=== PATIENT | female | born 1945 | race Caucasian/White ===

== ENCOUNTER → 2017-01-13 | Outpatient (CLI) | payer OTHER ==
[~2017-01-13] MED LIST: ADULT LOW DOSE81 MG PO; ALBUTEROL INHAL17 GM; ASPIRIN EC325 M1 PO; ASPIRIN EC81 M1 PO; ASPIRIN325; ASPIRIN325 PO; CALCIUM-MAGNES1 EA10 PO; CALTRATE PLUS1 EACH PO; CARDIO OMEGA B1 EACH PO; CARDIZEM CD240 MG PO; CENTRUM SILVER1 EAC4 PO; CIPRO PO; CIPROFLOXACIN500 M1 PO; DILTIAZEM 24HR240 MG PO; DILTIAZEM 24HR300 M1; DILTIAZEM 24HR300 M1 PO; DILTIAZEM ER240 M1 PO; DILTIAZEM ER300 MG PO; DIOVAN HCT 80-1 EACH; DIOVAN160 MG PO; DIOVAN40 MG PO; FLAGYL500 MG PO; GARLIC OIL1 EAC1 PO; LEVOTHYROXIN0.125 M1 PO; LEVOTHYROXIN0.125 M2 PO; NEXIUM40 MG PO; PROPAFENONE 15150 MG PO; PROPAFENONE 22225 M1 PO; PROPAFENONE 22225 MG; SINGULAIR 10 MG10 M1 PO; VICODIN PO; XARELTO10 MG PO; ZOCOR 10 MG TAB10 MG PO; ZOCOR 20 MG TAB20 M1; ZOCOR 20 MG TAB20 M1 PO; ZOFRAN ODT4 MG PO
== END ==
LOC: RAD 02:06
DX: Z12.31 Encounter for screening mammogram for malignant neoplasm of breast (principal)

== ENCOUNTER 2018-05-07 02:50 | Inpatient (IN) | payer OTHER ==
[~2018-05-07] VITALS: Ht 160 cm; Wt 79.8 kg
[2018-05-07] VITALS (9 sets, daily range): BP systolic 136–181; BP diastolic 62–102
--- NOTE | ~2018-05-07 | EKG ---
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1945 Requested By: Joaquim Polo Order Number: [id number] MD: Robbie Pride Measurements Intervals [place] Rate: 107 P: [place]: QRS: -38 QRSD: 76 T: 60 QT: 334 QTc: 446 Interpretive Statements Atrial fibrillation Abnormal R-wave progression, late transition Inferior infarct, old Compared to ECG 03/27/2014 20:05:17 No significant change was found Electronically Signed On 05-07-2018 8:39:24 [employer] by Robbie Pride [email or web address] <ELECTRONICALLY SIGNED> By: Robbie Pride MD, [facility] 05/07/18 0839 [id number] 0256 Robbie Pride MD, [facility] /EPI
--- NOTE | ~2018-05-07 | HC ---
[facility] [place] [address] CONSULTATION Name: KANIKA TRAMMELL Room #: 214-P [facility] IN M.R.#: [id number] Admission: 05/07/18 Attend Phys: Rafael Oscar MD Discharge: 05/07/18 Date of : 41 Report #: [id number] THIS REPORT FOR: //name// CC: Abdias Oscar DATE OF SERVICE: 05/07/2018 INDICATION: Chest pain. HISTORY OF PRESENT ILLNESS: This is a 72-year-old female with a past medical history significant for permanent atrial fibrillation, mitral regurgitation, hypertension, edema, GERD, presenting with chest pains. About 3 hours after eating dinner, the patient developed a discomfort in the substernal/epigastric area. She also felt that it extended down to the abdomen with cramping. She denies any associated symptoms of dyspnea, diaphoresis or palpitations. She burped with a slight improvement in the symptoms. Later in the evening, the pain returned and she noticed an elevated blood pressure. She came to the ER for an evaluation. There is no history of fever, chills, cough or diarrhea. PAST MEDICAL HISTORY: Atrial fibrillation, moderate mitral regurgitation, hypertension, GERD, edema. Last stress test was in 2012. ALLERGIES: CLARITHROMYCIN. MEDICATIONS: At home include Xarelto 20 mg daily, Cardizem 180 mg daily, atenolol 25 mg daily, levothyroxine, and omeprazole. SOCIAL HISTORY: Denies tobacco use. FAMILY HISTORY: Negative for premature CAD. REVIEW OF SYSTEMS: A full 10-point review of systems performed. Only the pertinent positives and negatives are described in the HPI. PHYSICAL EXAMINATION: VITAL SIGNS: Blood pressure is 148/70, heart rate is 90 beats per minute. GENERAL APPEARANCE: This is a well-developed, well-nourished female, in no acute distress. HEENT: Normocephalic, atraumatic, oral mucosa moist. NECK: Supple. LUNGS: Clear to auscultation. CARDIAC: Regular rate and rhythm; S1, S2 positive. ABDOMEN: Soft, nontender. EXTREMITIES: No cyanosis, trace edema. NEUROLOGIC: Alert and oriented x 3. [facility] [address] [place] [address] CONSULTATION Name: KANIKA TRAMMELL Room #: 214-P [facility] IN M.R.#: [id number] Admission: 05/07/18 Attend Phys: Rafael Oscar MD Discharge: 05/07/18 Date of : 41 Report #: [id number] LABORATORY VALUES: Two sets of troponins are negative. Sodium is 139, creatinine is 1.3. White count is 8.1, hemoglobin is 14.7 ECG reveals atrial fibrillation, rate controlled, small Q-waves inferiorly. ASSESSMENT AND PLAN: 1. Chest pain syndrome, the differential diagnosis includes ischemia, gastrointestinal, musculoskeletal. She has a prior history of gastroesophageal reflux disease, probable related to GI etiology. However, given her risk factors, she will need to undergo stress testing. 2. Atrial fibrillation, stable with rate control. She is currently on Xarelto, which should be continued. 3. Hypertension, mildly elevated. We will continue to follow at this time. If the blood pressure remains elevated, consider using diuretic. 4. Gastroesophageal reflux disease, continue with PPI. May need a GI evaluation at some point. This could be done as an outpatient. 5. Edema, trace amount, continue with low-salt diet. <ELECTRONICALLY SIGNED> By: Mckay Phelps MD 05/08/18 0817 1354 1432 Mckay Phelps MD /nt
--- NOTE | ~2018-05-07 | 2DMMODE ---
[facility] [address] [place] [address] 2 D/M-MODE ECHOCARDIOGRAM Name: KANIKA TRAMMELL Room #: 214-P ADM IN M.R.#: [id number] Admission: 05/07/18 Attend Phys: Rafael Oscar, Discharge: Date of : 41 Date of Service: 05/07/18 0935 Report #: [id number] THIS REPORT FOR: //name// APPROVED REPORT Study performed: 05/07/2018 08:00:51 EXAM: Comprehensive 2D, Doppler, and color-flow Echocardiogram Patient Location: Bedside Room #: 214 Status: routine BSA: 1.83 HR: 102 bpm BP: 181/102 mmHg Rhythm: Atrial Fibrillation Other Information Study Quality: Good Indications Atrial Fibrillation Chest Pain Hypertension/HDD 2D Dimensions RVDd: 39.86 mm IVSd: 11.22 (7-11mm) LVOT Diam: 16.97 (18-24mm) LVDd: 42.86 mm PWd: 12.06 (7-11mm) Ascending Ao: 29.60 (22-36mm) LVDs: 27.23 (25-40mm) Aortic Root: 34.01 mm Volumes Left Atrial Volume (Systole) Single Plane 4CH: 60.32 mL Single Plane 2CH: 78.92 mL LA ESV Index: 40.15 mL/m2 Aortic Valve AoV Peak Samir.: 1.11 m/s AO Peak Gr.: 6.62 mmHg LVOT Max P.20 mmHg LVOT Max V: 0.89 m/s AV Vmax: 1.81 cm2 Mitral Valve MV Decel. Time: 132.36 ms [facility] [address] [place] [address] 2 D/M-MODE ECHOCARDIOGRAM Name: KANIKA TRAMMELL Room #: 214-P ADM IN ..#: [id number] Admission: 05/07/18 Attend Phys: Rafael Oscar, Discharge: Date of : 41 Date of Service: 05/07/18 0935 Report #: [id number] MV E Max Samir.: 1.26 m/s IVRT: 88.81 ms Pulmonary Valve PV Peak Samir.: 0.83 m/s PV Peak Gr.: 2.74 mmHg Tricuspid Valve TR Peak Samir.: 2.77 m/s RAP Estimate: 10.00 mmHg TR Peak Gr.: 30.68 mmHg PA Pressure: 41.00 mmHg Left Ventricle The left ventricle is normal size. There is normal LV segmental wall motion. Borderline concentric left ventricular hypertrophy. The left ventricular systolic function is normal. The left ventricular ejection fraction is within the normal range. LVEF is 65-70%. This study is not technically sufficient to allow evaluation of the LV diastolic function due to atrial fibrillation. Right Ventricle Right ventricle is mildly dilated. The right ventricular systolic function is normal. Atria Left atrium is mildly dilated. Right atrium is moderately dilated. Aortic Valve The aortic valve is mildly sclerotic No aortic regurgitation is present. There is no aortic valvular stenosis. Mitral Valve Mild mitral annular calcification Moderate mitral regurgitation. No evidence of mitral valve stenosis. There is normal mitral valve excursion. Tricuspid Valve The tricuspid valve is normal in structure. Mild tricuspid regurgitation. Pulmonic Valve Pulmonic valve is not well visualized. Moderate pulmonic regurgitation. Great Vessels The aortic root is normal in size. IVC is dilated and collapses [facility] [address] [place] [address] 2 D/M-MODE ECHOCARDIOGRAM Name: KANIKA TRAMMELL Room #: 214-P ADM IN M.R.#: [id number] Admission: 05/07/18 Attend Phys: Rafael Oscar, Discharge: Date of : 41 Date of Service: 05/07/18 0935 Report #: [id number] <50% with inspiration. Pericardium There is no pericardial effusion. <Conclusion> The left ventricular systolic function is normal. There is normal LV segmental wall motion. LVEF is 65-70%. Right ventricle is mildly dilated. Left atrium is mildly dilated. Right atrium is moderately dilated. The aortic valve is mildly sclerotic No aortic regurgitation or stenosis Mild mitral annular calcification. Moderate mitral regurgitation. Pulmonary artery presusrer of 35mmHg There is no pericardial effusion. <ELECTRONICALLY SIGNED> By: Robbie Pride MD, [facility] 05/07/18934 4 4 Robbie Pride MD, FAC /INF
[2018-05-07 03:27] LABS: ABSOLUTE NEUTROPHILS 4.7 thou/uL (1.4-8.2); BASOPHILS 0.6 % (0.0-2.0); EOSINOPHILS 2.8 % (0.0-3.0); HEMATOCRIT 44.6 % (37.0-47.0); HEMOGLOBIN 14.7 gm/dL (12.0-15.0); LYMPHOCYTES 26.9 % (24.0-44.0); MCH 31.9 pg (26.0-34.0); MCHC 32.9 g/dL (28.0-37.0); MCV 96.8 fL (80.0-100.0); MONOCYTES 11.5 % (1.0-8.0); PLATELET COUNT 283 thou/uL (150-400); POLYS 58.2 % (36.0-66.0); RBC 4.61 mil/uL (4.20-5.00); RDW 14.4 % (10.5-14.5); WBC 8.1 thou/uL (4.0-11.0)
[2018-05-07] MEDS ORDERED: TENORMIN25 MG PO (03:48)
[2018-05-07] MEDS ORDERED: VITAMIN D2000 UNIT PO (03:49)
[2018-05-07 04:02] LABS: ANION GAP 9 mmol/L (7-16); BUN 33 mg/dL (7-18); CALCIUM 9.9 mg/dL (8.5-10.1); CHLORIDE 104 mmol/L (98-107); CO2 26 mmol/L (21-32); CREATININE 1.3 mg/dL (0.6-1.0); GLUCOSE 123 mg/dL (74-106); POTASSIUM 4.1 mmol/L (3.5-5.1); SODIUM 139 mmol/L (136-145)
[2018-05-07 04:10] LABS: ALBUMIN 3.8 g/dL (3.4-5.0); MAGNESIUM 2.1 mg/dL (1.8-2.4); SGOT 22 U/L (15-37); SGPT 22 U/L (30-65); TOTAL BILIRUBIN 0.4 mg/dL (<0.1-1.0); TOTAL PROTEIN 7.9 g/dL (6.4-8.2); TROPONIN-I <0.06 ng/mL (<0.06)
[2018-05-07 09:38] LABS: CHOLESTEROL 180 mg/dL (<200); HDL CHOLESTEROL 59 mg/dL (>40); LDL CHOLESTEROL 109 mg/dL (<100); TC:HDL 3.1 Ratio (Not establshd); TRIGLYCERIDE 64 mg/dL (<150); VLDL 13 mg/dL (<40)
[2018-05-07 20:08] LABS: GLYCOHEMOGLOBIN (HGB A1C) 6.2 % (4.8-5.6)
== END 2018-05-07 18:00 | disposition home or self-care (01) | DRG 313 ==
LOC: ER 02:50 → EROBS 04:29 → 2N 04:29 → ENTRNSPT 17:44 → 2N 18:00
PROVIDERS: Emergency Medicine; Nurse Practitioner Acute Care
DX: R07.89 Other chest pain (principal); N17.9 Acute kidney failure, unspecified; I10 Essential (primary) hypertension; I48.2 Chronic atrial fibrillation; K21.9 Gastro-esophageal reflux disease without esophagitis; N18.3 Chronic kidney disease, stage 3 (moderate); E03.9 Hypothyroidism, unspecified; Z88.1 Allergy status to other antibiotic agents
CPT/HCPCS: 10081

== ENCOUNTER → 2019-02-24 | Outpatient (CLI) | payer OTHER ==
[~2019-02-24] MED LIST changes: +TENORMIN25 MG PO; +VITAMIN D2000 UNIT PO
== END ==
LOC: RAD 13:22
DX: Z12.31 Encounter for screening mammogram for malignant neoplasm of breast (principal)

== ENCOUNTER → 2019-09-29 | Outpatient (CLI) | payer OTHER | LOC: SJCVC 13:46 | DX: R94.31 Abnormal electrocardiogram [ECG] [EKG] (principal); I21.29 ST elevation (STEMI) myocardial infarction involving other sites; I48.91 Unspecified atrial fibrillation; I34.0 Nonrheumatic mitral (valve) insufficiency; I10 Essential (primary) hypertension; R60.9 Edema, unspecified ==

== ENCOUNTER → 2020-02-22 | Outpatient (CLI) | payer OTHER | LOC: SJCVC 10:43 | PROVIDERS: ATTEND Internal Medicine Cardiovascular Disease | DX: I48.0 Paroxysmal atrial fibrillation (principal) ==

== ENCOUNTER → 2020-03-02 | Outpatient (CLI) | payer OTHER | LOC: BC 13:00 | PROVIDERS: ATTEND Internal Medicine | DX: Z12.31 Encounter for screening mammogram for malignant neoplasm of breast (principal) ==

== ENCOUNTER 2020-03-18 14:37 | Emergency (ER) | payer OTHER ==
[~2020-03-18] VITALS: Ht 160 cm; Wt 73.5 kg
[2020-03-18 15:46] LABS: ABSOLUTE NEUTROPHILS 6.5 thou/uL (1.4-8.2); BASOPHILS 0.6 % (0.0-2.0); EOSINOPHILS 1.2 % (0.0-3.0); HEMATOCRIT 39.8 % (37.0-47.0); HEMOGLOBIN 13.3 gm/dL (12.0-15.0); LYMPHOCYTES 10.9 % (24.0-44.0); MCH 32.7 pg (26.0-34.0); MCHC 33.5 g/dL (28.0-37.0); MCV 97.8 fL (80.0-100.0); MONOCYTES 8.4 % (1.0-8.0); PLATELET COUNT 210 thou/uL (150-400); POLYS 78.9 % (36.0-66.0); RBC 4.07 mil/uL (4.20-5.00); RDW 13.4 % (10.5-14.5); WBC 8.3 thou/uL (4.0-11.0)
[2020-03-18 16:08] LABS: ANION GAP 12 mmol/L (7-16); BUN 20 mg/dL (7-18); CALCIUM 9.4 mg/dL (8.5-10.1); CHLORIDE 107 mmol/L (98-107); CO2 22 mmol/L (21-32); CREATININE 1.2 mg/dL (0.6-1.0); GLUCOSE 99 mg/dL (74-106); POTASSIUM 4.1 mmol/L (3.5-5.1); SODIUM 141 mmol/L (136-145)
[2020-03-18 16:16] LABS: TROPONIN-I <0.06 ng/mL (<0.06)
[2020-03-18] MEDS ORDERED: PROTONIX40 M2 PO (16:29)
[2020-03-18 17:40] VITALS: BP 126/60
--- NOTE | 2020-03-18 23:01 | EKG ---
[facility] [place] [address] ELECTROCARDIOGRAM REPORT Name: KANIKA TRAMMELL Room #: DEP [facility]#: [id number] Admission: 03/18/20 Attend Phys: Discharge: 03/18/20 Date of : 41 Report #: [id number] THIS REPORT FOR: cc: Abdias Garcia MD, [facility] A[facility] 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1945 Requested By: Julianne Thompson Order Number: [id number] MD: Robbie Pride Measurements Intervals [place] Rate: 70 P: [place]: QRS: -52 QRSD: 84 T: -11 QT: 384 QTc: 415 Interpretive Statements Atrial fibrillation Abnormal R-wave progression, late transition Inferior infarct, old Compared to ECG 05/07/2018 02:56:20 No significant changes Electronically Signed On 03-18-2020 23:01:40 CDT by Robbie Pride [email or web address] <ELECTRONICALLY SIGNED> By: Robbie Pride MD, FACC 03/18/20 2301 1501 1501 Robbie Pride MD, [facility] /EPI
== END 2020-03-18 17:35 | disposition home or self-care (01) ==
LOC: ER 14:37
PROVIDERS: Emergency Medicine
DX: R07.89 Other chest pain (principal); R14.2 Eructation; R10.13 Epigastric pain; I48.91 Unspecified atrial fibrillation; I12.9 Hypertensive chronic kidney disease with stage 1 through stage 4 chronic kidney disease, or unspecified chronic kidney disease; N18.2 Chronic kidney disease, stage 2 (mild); Z79.899 Other long term (current) drug therapy; Z88.1 Allergy status to other antibiotic agents

== ENCOUNTER → 2020-04-13 | Outpatient (CLI) | payer OTHER ==
[~2020-04-13] MED LIST changes: +PROTONIX40 M2 PO
== END ==
LOC: SJCVCIMAG 09:06
PROVIDERS: ATTEND Internal Medicine Cardiovascular Disease
DX: I08.8 Other rheumatic multiple valve diseases (principal); R94.31 Abnormal electrocardiogram [ECG] [EKG]; I11.9 Hypertensive heart disease without heart failure; I48.19 Other persistent atrial fibrillation; K21.9 Gastro-esophageal reflux disease without esophagitis; I48.91 Unspecified atrial fibrillation; Z79.899 Other long term (current) drug therapy

== ENCOUNTER → 2020-05-01 | Outpatient (CLI) | payer OTHER | LOC: SJCVCIMAG 08:53 | PROVIDERS: ATTEND Internal Medicine Cardiovascular Disease | DX: I08.8 Other rheumatic multiple valve diseases (principal); I48.91 Unspecified atrial fibrillation; I11.9 Hypertensive heart disease without heart failure; Z79.899 Other long term (current) drug therapy ==

== ENCOUNTER → 2020-05-02 | Outpatient (CLI) | payer OTHER | LOC: SJCVC 12:58 | PROVIDERS: ATTEND Internal Medicine Cardiovascular Disease | DX: I48.0 Paroxysmal atrial fibrillation (principal); I10 Essential (primary) hypertension; I34.0 Nonrheumatic mitral (valve) insufficiency; R07.9 Chest pain, unspecified; Z79.899 Other long term (current) drug therapy ==

== ENCOUNTER → 2020-10-31 | Outpatient (CLI) | payer OTHER | LOC: SJCVC 13:11 | PROVIDERS: ATTEND Internal Medicine Cardiovascular Disease | DX: R94.31 Abnormal electrocardiogram [ECG] [EKG] (principal); I48.91 Unspecified atrial fibrillation; I10 Essential (primary) hypertension; I34.0 Nonrheumatic mitral (valve) insufficiency; R60.9 Edema, unspecified; M19.90 Unspecified osteoarthritis, unspecified site; K21.9 Gastro-esophageal reflux disease without esophagitis; E03.9 Hypothyroidism, unspecified; Z88.8 Allergy status to other drugs, medicaments and biological substances; Z79.899 Other long term (current) drug therapy; Z82.49 Family history of ischemic heart disease and other diseases of the circulatory system ==

== ENCOUNTER → 2021-03-21 | Outpatient (CLI) | payer OTHER | LOC: BC 13:01 | PROVIDERS: ATTEND Obstetrics & Gynecology | DX: Z12.31 Encounter for screening mammogram for malignant neoplasm of breast (principal); N64.89 Other specified disorders of breast ==